=== PATIENT | male | born 1975 | race Caucasian/White ===

== ENCOUNTER 2021-03-04 18:18 | Emergency (ER) | payer MEDICAID, SELFPAY ==
[2021-03-04 19:15] VITALS: BP 131/87; PULSE 69; RESP 16; TEMP 36.8; O2SAT 100; BMI 19.5
--- NOTE | 2021-03-04 19:19 | HMH.EDGENADL ---
ED Disposition Clinical Impression: Contusion of right foot Qualifiers: Encounter type: initial encounter Qualified Code(s): S90.31XA - Contusion of right foot, initial encounter Right foot sprain Qualifiers: Encounter type: initial encounter Qualified Code(s): S93.601A - Unspecified sprain of right foot, initial encounter Disposition: Home, Self-Care Condition on Discharge: Good Additional Instructions: Orthopedic boot. Continue crutches. Ice and elevation to reduce swelling and pain. Follow-up with podiatry, Dr. Cerrato, call for appointment. [place] as needed for pain. Tylenol or ibuprofen for less severe pain. Referrals: Yara Cerrato DPM [Staff Physician] - - Critical Care Critical Care Time: No Attestation: On 03/04/21, the high probability of a clinically significant, sudden or life threatening deterioration of the following system(s) required my full and direct attention, intervention and personal management. The time I documented below is in addition to time spent performing reported procedures but includes the following listed in this critical care notation. Medical Decision Making - Leif Inquiry Pt receiving controlled substance: Yes Leif was queried for this patient: Yes Risks and benefits of using a controlled substance: were discussed with pt by me Vital Signs: 03/04/21 19:15 03/04/21 19:30 Temperature 98.2 F Temperature Source Oral Pulse Rate 76 Pulse Rate [Right] 69 Respiratory Rate 16 Blood Pressure 113/73 Blood Pressure [Right Arm] 131/87 Blood Pressure Mean 86 Blood Pressure Mean [Right Arm] 101 Blood Pressure Source [Right Arm] Automatic Cuff Blood Pressure Position [Right Arm] Supine 02 Sat by Pulse Oximetry 100 97 Oxygen Delivery Method Room Air Orders (Tests/Meds): ED MEDICATIONS Discontinued Medications Generic Name Dose Route Start Last Admin Trade Name Freq PRN Reason Stop Dose Admin Acetaminophen/Codeine Phosphate 1 kali 03/04/21 19:59 Acetaminophen 300mg W/Codeine 30mg Take Home Pack (6) PO 03/04/21 20:00 ONCE ONE Hydrocodone Bitart/Acetaminophen 1 tab 03/04/21 19:48 Hydrocodone/Apap 5/325 Mg Tablet PO 03/04/21 19:49 ONCE ONE Medical Decision Narrative: The area of concern on x-ray of his great toe does not appear to be injured. There is no tenderness, ecchymosis, or edema. Likely an old finding. General Adult HPI - General Stated complaint: AO04/30 r ankle injury Time Seen by Provider: 03/04/21 19:19 - History of Present Illness HPI narrative: Jumped out of the bed of a truck yesterday morning landing on the edge of the sidewalk with his right foot. Has pain in his right foot in the arch and heel. Denies ankle pain. Toes feel little tingly. He is on crutches which she had at home, but did not feel like he improved since the injury and therefore came to the emergency department. - Related Data Home Medications Medication Instructions Recorded Confirmed No Known Home Medications 03/04/21 03/04/21 Allergies Allergy/AdvReac Type Severity Reaction Status Date / Time No Known Allergies Allergy Verified 05/06/18 09:17 [facility] History - Hepatitis A Screen Attestation statement:: This patient has been screened for Hepatitis A risk factors. I have reviewed the patient's past medical history: Yes Medical History: Denies:: Diabetes Mellitus Type 2, Hypertension Other Surgeries: Yes: Appendectomy Fractures: Yes (HANDS AND LEGS) - Social History Smoking Status: Current every day smoker Tobacco Type: cigarettes # Packs/Day (cigarettes): 1 Alcohol Intake: never Occupational Status: other ROS Obtained: Yes Systems reviewed as appropriate & no additional complaints - Musculoskeletal Musculoskeletal: Reports as per HPI - Neurologic Neurologic: Reports tingling, Denies weakness Physical Exam - General General appearance: alert, in no apparent distress - Respiratory Resp
--- NOTE | 2021-03-04 19:23 | XR_ITS ---
PROCEDURE INFORMATION: Exam: XR Right Calcaneus Exam date and time: 03/04/2021 7:23 PM Age: 46 years old Clinical indication: Injury or trauma; Fall; Blunt trauma; Right; Patient HX: Hit arch of foot on a concrete block TECHNIQUE: Imaging protocol: XR of the Right calcaneus. Views: 2 or more views. COMPARISON: No relevant prior studies available. FINDINGS: Bones/joints: Linear area of sclerosis in the calcaneal bone is incidentally noted on the lateral view. This appears to be of chronic etiology. No acutely displaced fractures are grossly noted. No dislocation. Soft tissues: No significant soft tissue swelling. IMPRESSION: No acutely displaced fractures are appreciated.
--- NOTE | 2021-03-04 19:23 | XR_ITS ---
PROCEDURE INFORMATION: Exam: XR Right Foot Exam date and time: 03/04/2021 7:23 PM Age: 46 years old Clinical indication: Injury or trauma; Fall; Blunt trauma; Right; Patient HX: Hit arch of foot on a concrete block TECHNIQUE: Imaging protocol: XR Right foot. Views: 3 or more views. COMPARISON: No relevant prior studies available. FINDINGS: Bones/joints: Linear lucency at the lateral corner of the greater toe distal phalanx with intra-articular extension. This is concerning for a minimally displaced fracture. Differential would include a anatomical unfused apophysis. Normal anatomic alignment. No other acutely displaced fractures are identified. There is no evidence of dislocation. No aggressive osseous lesions. Soft tissues: There is no significant soft tissue swelling. IMPRESSION: 1. Findings at the lateral corner of the greater toe distal phalanx are concerning for either a minimally displaced intra-articular corner fracture versus a anatomical unfused apophysis. Consider correlation with point tenderness. 2. No other acute skeletal pathology is identified.
[2021-03-04 19:30] VITALS: BP 113/73; PULSE 76; O2SAT 97
[2021-03-04 20:00] VITALS: BP 122/83; PULSE 72; O2SAT 99
[2021-03-04 20:23] VITALS: BP 122/83; PULSE 72; RESP 16; TEMP 36.8; O2SAT 97
== END 2021-03-04 20:41 | disposition home or self-care (01) ==
PROVIDERS: Emergency Provider Emergency Medicine; PCP Emergency Medicine
DX: S90.31XA Contusion of right foot, initial encounter (principal); S93.601A Unspecified sprain of right foot, initial encounter; W22.09XA Striking against other stationary object, initial encounter; Y93.39 Activity, other involving climbing, rappelling and jumping off; Y92.89 Other specified places as the place of occurrence of the external cause; F17.210 Nicotine dependence, cigarettes, uncomplicated
CPT/HCPCS: 29515; 73630; 73650; 99282

== ENCOUNTER 2021-06-09 16:10 | Emergency (ER) | payer MEDICAID, SELFPAY ==
[2021-06-09 16:10] VITALS: BP 138/72; PULSE 82; RESP 20; TEMP 37.3; O2SAT 99; BMI 19.3
--- NOTE | 2021-06-09 16:33 | HMH.EDUTC ---
[facility] [place] Disposition Condition on Discharge: Good Time of Disposition: 19:16 <Christian Turk - Last Filed: 06/09/21 19:15> Condition on Discharge: Fair Time of Disposition: 17:19 <aRdha Matthews - Last Filed: 06/09/21 21:26> Clinical Impression: Hand laceration Qualifiers: Encounter type: initial encounter Foreign body presence: unspecified Laterality: right Qualified Code(s): S61.411A - Laceration without foreign body of right hand, initial encounter Disposition: Home, Self-Care Instructions: DI for Laceration Repair Additional Instructions: Please return to this emergency department on Saturday for me to reevaluate your wound. Come to the emergency department even if you have no complaints and you feel that your wound is healing properly. Keep the wound dry. You may wash it after a scab has formed but you must dry it shortly thereafter. Do not soak the wound in water. Turn to the emergency department immediately if you notice any worsening of your condition. Referrals: Joe Corley MD [Primary Care Provider] - Medical Decision Making - Medical Records Medical records reviewed: Yes: I reviewed the patient's medical records. - Leif Inquiry Pt receiving controlled substance: No - Radiology Data #1 Image(s): Hand Image Reviewed: Yes I reviewed the patient's radiology results, Yes I reviewed the patient's radiology image, Yes I have reviewed radiologist's interpretation Preliminary Findings: Normal/NAD <Christian Turk - Last Filed: 06/09/21 19:15> - Leif Inquiry Pt receiving controlled substance: No Leif was queried for this patient: No <Radha Matthews - Last Filed: 06/09/21 21:26> Vital Signs: 06/09/21 16:10 06/09/21 16:36 06/09/21 19:28 Temperature 99.1 F 98 F 98.5 F Temperature Source Oral Oral Oral Pulse Rate 68 Pulse Rate [Right Brachial] 82 76 Respiratory Rate 20 16 17 Blood Pressure 134/83 Blood Pressure [Left Arm] 138/72 140/79 Blood Pressure Mean [Left Arm] 94 99 Blood Pressure Source Automatic Cuff Blood Pressure Source [Left Arm] Automatic Cuff Blood Pressure Position Sitting Blood Pressure Position [Left Arm] Sitting Sitting 02 Sat by Pulse Oximetry 99 98 100 Oxygen Delivery Method Room Air Room Air Room Air 06/09/21 19:31 Temperature 98.5 F Temperature Source Pulse Rate 68 Pulse Rate [Right Brachial] Respiratory Rate 16 Blood Pressure 134/83 Blood Pressure [Left Arm] Blood Pressure Mean [Left Arm] Blood Pressure Source Blood Pressure Source [Left Arm] Blood Pressure Position Blood Pressure Position [Left Arm] 02 Sat by Pulse Oximetry Oxygen Delivery Method Orders (Tests/Meds): ED MEDICATIONS Discontinued Medications Generic Name Dose Route Start Last Admin Trade Name Freq PRN Reason Stop Dose Admin Tetanus/Reduced Diphtheria/Acell Pertussis 0.5 ml 06/09/21 16:35 06/09/21 16:44 Tet/Diphth/Pert-Adult 0.5ml Syringe IM 06/09/21 16:36 0.5 ml .ONCE ONE Administration Medical Decision Narrative: The patient was transferred to the main emergency department from the urgent care treatment center. I evaluated the patient and examined his wound. The wound was thoroughly cleaned under tap water followed by sterile normal saline. We discussed the elevated risk of infection with the patient since this injury happened yesterday. The patient has agreed to return on Saturday to see me in the emergency department for a wound follow-up. I told him that if there are signs of infection we will have to remove the sutures and let it heal that way. (Christian Turk) Due to extent of laceration on right hand patient to be transferred to ED for further evaluation and treatment Patient agreed called ED spoke with Mirella and patient was moved to room 8 no active bleeding noted (Radha Matthews) [facility] [place] HPI - General Mode of Arrival: Ambulatory Source of Information: Patient Limitations: No Limitations <Christian Turk - Last Filed: 06/09/21 1
[2021-06-09 16:36] VITALS: BP 140/79; PULSE 76; RESP 16; TEMP 36.6; O2SAT 98; BMI 19.3
--- NOTE | 2021-06-09 17:12 | XR_ITS ---
PROCEDURE INFORMATION: Exam: XR Right Hand Exam date and time: 06/09/2021 5:12 PM Age: 46 years old Clinical indication: Injury or trauma; Other: Possible foriegn body; Right; Injury date: 06/09/2021; Injury details: Hand went through glass window; . Laceration at mid palm; . Possible foreign body; Additional info: Laceration, R/O fb TECHNIQUE: Imaging protocol: XR Right hand. Views: 1 or 2 views. COMPARISON: No relevant prior studies available. FINDINGS: Bones/joints: No evidence of acute fracture. There is a deformity of the 5th metacarpal that appears chronic. Positive ulnar variance. Soft tissues: No radiopaque foreign body. Other findings: Two views. IMPRESSION: Two views demonstrate no radiopaque foreign body
[2021-06-09 19:28] VITALS: BP 134/83; PULSE 68; RESP 17; TEMP 36.9; O2SAT 100
[2021-06-09 19:31] VITALS: BP 134/83; PULSE 68; RESP 16; TEMP 36.9; O2SAT 99
== END 2021-06-09 19:32 | disposition home or self-care (01) ==
LOC: UTC 16:16 → ER 16:33
PROVIDERS: Emergency Provider Emergency Medicine; PCP Emergency Medicine
DX: S61.411A Laceration without foreign body of right hand, initial encounter (principal); W25.XXXA Contact with sharp glass, initial encounter; Y92.019 Unspecified place in single-family (private) house as the place of occurrence of the external cause; F17.210 Nicotine dependence, cigarettes, uncomplicated; Z23 Encounter for immunization
CPT/HCPCS: 12002; 73120; 90471; 90715; 99282